=== PATIENT | female | born 1985 | race African-American/Black ===

== ENCOUNTER 2022-02-27 18:42 | Emergency (ER) | payer MEDICAID, OTHER ==
[~2022-02-27] VITALS: Ht 170.2 cm; Wt 60.0 kg
[2022-02-27] MEDS ORDERED: LORAZEPAM 1MG TABLET PO ONE (19:00)
[2022-02-27] MEDS ORDERED: SODIUM CHLORIDE 0.9% 1,000 ML IV ONE (19:00)
[2022-02-27 19:05] VITALS: BP 138/89
[2022-02-27 19:10] LABS: BASOPHILS % 1.2 % (0.0-2.0); EOSINOPHILS % 1.2 % (0.0-5.0); HEMATOCRIT. 30.5 % (36.0-48.0); HEMOGLOBIN. 9.7 g/dL (12.0-16.0); LYMPHOCYTES % 41.2 % (20.0-50.0); MEAN CORPUSCULAR HEMOGLOBIN 24.2 pg (28.0-32.0); MEAN CORPUSCULAR VOLUME 75.9 fL (81.0-99.0); MEAN PLATELET VOLUME 7.2 fl (7.4-10.4); NEUTROPHILS % 48.4 % (40.0-76.0); PLATELET 514 x1000/uL (130-400); RED BLOOD CELL COUNT 4.02 mill/uL (4.2-5.4); RED CELL DISTRIBUTION WIDTH 21.1 % (11.6-14.6)
[2022-02-27 19:18] LABS: CHLORIDE 110 mEq/L (98-107)
[2022-02-27 19:26] LABS: ETHANOL BLOOD < 10 mg/dL
== END 2022-02-27 20:02 | disposition left against medical advice (07) ==
LOC: ER 18:42
DX: T65.91XA Toxic effect of unspecified substance, accidental (unintentional), initial encounter (principal); Z13.9 Encounter for screening, unspecified; Y92.9 Unspecified place or not applicable
CPT/HCPCS: 36415; 71045; 80053; 80307; 80320; 80329; 82140; 83690; 85025; 99284; J7030; G0480